=== PATIENT | male | born 1980 | race Two or more races ===

== ENCOUNTER 2017-04-22 13:33 | Emergency (ER) | payer SELFPAY ==
[~2017-04-22] VITALS: Ht 177.8 cm; Wt 95.3 kg
[2017-04-22 13:35] VITALS: BP 133/95
[2017-04-22] MEDS ORDERED: HYDR-971 PO (14:07)
[2017-04-22] MEDS ORDERED: ACYC800T PO (14:07)
--- NOTE | 2017-04-22 14:07 | PHYS DOC ---
Adult General Chief Complaint Chief Complaint: SKIN RASH/ABSCESS [facility] HPI Patient is a 36 year old male presents to the emergency department with a 3 day history of rash to the left flank area. Patient states the area had been painful prior to the outbreak. Patient states he has had chicken pox as a child. Review of Systems Review of Systems Constitutional: Denies fever or chills [] Eyes: Denies change in visual acuity, redness, or eye pain [] HENT: Denies nasal congestion or sore throat [] Respiratory: Denies cough or shortness of breath [] Cardiovascular: No additional information not addressed in HPI [] GI: Denies abdominal pain, nausea, vomiting, bloody stools or diarrhea [] : Denies dysuria or hematuria [] Musculoskeletal: Denies back pain or joint pain [] Integument: rash denies skin lesions [] Neurologic: Denies headache, focal weakness or sensory changes [] Endocrine: Denies polyuria or polydipsia [] Allergies Allergies Allergies Coded Allergies Type Severity Reaction Last Updated Verified No Known Drug Allergies 04/22/17 No Physical Exam Physical Exam Constitutional: Well developed, well nourished, no acute distress, non-toxic appearance. [] HENT: Normocephalic, atraumatic, bilateral external ears normal, oropharynx moist, no oral exudates, nose normal. [] Eyes: PERRLA, EOMI, conjunctiva normal, no discharge. [] Neck: Normal range of motion, no tenderness, supple, no stridor. [] Cardiovascular:Heart rate regular rhythm, no murmur [] Lungs & Thorax: Bilateral breath sounds clear to auscultation [] Skin: Warm, dry, no erythema, patient with a vesicular -type rash around multiple stages the left flank. Back: No tenderness Extremities: No tenderness, no cyanosis, no clubbing, ROM intact, no edema. [] Neurologic: Alert and oriented X 3, normal motor function, normal sensory function, no focal deficits noted. [] Psychologic: Affect normal, judgement normal, mood normal. [] EKG EKG [] Radiology/Procedures Radiology/Procedures [] Course & Med Decision Making Course & Med Decision Making Pertinent Labs and Imaging studies reviewed. (See chart for details) Patient was recommended to keep the are clean and dry. Clean the are with soap and water, apply calamine lotion to the area. Benadryl may help with the itching. Medication as prescribed. Signs and symptoms to return to the emergency department has been provided. Patient will be provided with norco for severe pain. He was instructed this medication will cause drowsiness do not take if you need to be alert and oriented. [] Dragon Disclaimer Dragon Disclaimer This electronic medical record was generated, in whole or in part, using a voice recognition dictation system. Departure Departure Impression: Primary Impression: Shingles rash Disposition: HOME, SELF-CARE Condition: STABLE Patient Instructions: Shingles, [id number] Additional Instructions: Activity as tolerated Keep the are clean dry and cool Calamine lotion to the area Benadryl as needed for itching. This medication will cause drowsiness do not take if you need to be alert and oriented [place] for severe pain this medication will cause drowsiness do not take if you need to be alert and oriented Followup with primary care provider as needed Return to emergency department as needed for signs and symptoms that become worse. Scripts Acyclovir (ACYCLOVIR) 800 Mg Tablet 1 TAB PO 5XDAY, #50 TAB Prov: EMILY SOLIZ APRN 04/22/17 Hydrocodone/Apap 5-325 (NORCO 5-325 TABLET) 1 Each Tablet 1 TAB PO PRN Q6HRS Y for PAIN, #20 TAB 0 Refills Prov: EMILY SOLIZ APRN 04/22/17 EMILY SOLIZ APRN Apr 22, 2017 14:07
== END 2017-04-22 13:35 | disposition home or self-care (01) ==
LOC: ER 13:33
DX: B02.9 Zoster without complications (principal)
CPT/HCPCS: 99283